=== PATIENT | male | born 1990 | race Two or more races ===

== ENCOUNTER 2020-09-10 17:51 | Emergency (ER) | payer SELFPAY ==
--- NOTE | 2020-09-10 19:12 | EDM.PDOCBH ---
ED HPI GENERAL MEDICAL PROBLEM - General Chief Complaint: Behavioral/Psych Stated Complaint: PSYCH EVALUATION Time Seen by Provider: 09/10/20 18:53 Source of Information: Reports: Patient History Limitations: Reports: No Limitations - History of Present Illness INITIAL COMMENTS - FREE TEXT/NARRATIVE: The patient presents for anxiety. He has been under lots of stress worrying a bout his dad. He had a stroke and they found he needs a Bypass. His dad is opting to use [facility]. 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 He is also a student at [employer]. He saw his therapist today and they felt he should talk to someone at [employer]. They had no one available to their policy is to sent them in for a psych eval. The patient has no suicidal or homicidal thoughts. He is not seeing or hearing things that are not there. He has not eaten today because he has been so busy. He has no history of depression. Onset: Gradual Duration: Day(s): Severity: Mild Improves with: Reports: None Worsens with: Reports: None Associated Symptoms: Reports: No Other Symptoms Headache Pain Score (Numeric/FACES): 1 - Related Data Allergies Allergy/AdvReac Type Severity Reaction Status Date / Time No Known Allergies Allergy Verified 09/10/20 18:29 Home Meds: Home Meds . [No Known Home Meds] 09/10/20 [History] Past Medical History - Past Health History Medical/Surgical History: Denies Medical/Surgical History - Infectious Disease History Infectious Disease History: Reports: Chicken Pox Social & Family History - Tobacco Use Years of Tobacco use: 0 Packs/Tins Daily: 0.1 - Caffeine Use Caffeine Use: Reports: Tea - Recreational Drug Use Recreational Drug Type: Reports: Marijuana/Hashish Other Recreational Drug Type: socially ED ROS GENERAL - Review of Systems Review Of Systems: See Below Constitutional: Reports: No Symptoms HEENT: Reports: No Symptoms Respiratory: Reports: No Symptoms Cardiovascular: Reports: No Symptoms Endocrine: Reports: No Symptoms GI/Abdominal: Reports: No Symptoms : Reports: No Symptoms Musculoskeletal: Reports: No Symptoms Skin: Reports: No Symptoms ED EXAM, BEHAVIORAL HEALTH - Physical Exam Exam: See Below Exam Limited By: No Limitations General Appearance: Alert, No Apparent Distress Ears: Normal External Exam Nose: Normal Inspection Head: Atraumatic, Normocephalic Neck: Normal Inspection Respiratory/Chest: No Respiratory Distress, Lungs Clear, Normal Breath Sounds Cardiovascular: Regular Rate, Rhythm, No Edema, No Murmur GI/Abdominal: Soft, Non-Tender, No Organomegaly, No Mass Extremities: Normal Inspection Neurological: Alert, No Motor/Sensory Deficits COURSE, BEHAVIORAL HEALTH COMP - Course Vital Signs: Last Vital Signs Temp 98.9 F 09/10/20 18:33 Pulse 64 09/10/20 18:33 Resp 20 09/10/20 18:33 BP 130/87 09/10/20 18:33 Pulse Ox 98 09/10/20 18:33 Re-Assessment/Re-Exam: The patient is not suicidal or homicidal. He has some stressors and he is seeking out therapy for them. I do not think anything else needs to be done. I will discharge him home. Departure - Departure Time of Disposition: 19:15 Disposition: Home, Self-Care 01 Condition: Good Clinical Impression: Stress - Discharge Information Referrals: PCP,None [Primary Care Provider] - Additional Instructions: Continue to see your therapist and please return if you are worse. Sepsis Event Note (ED) - Evaluation Sepsis Screening Result: No Definite Risk - Focused Exam Vital Signs: Vital Signs Temp Pulse Resp BP Pulse Ox 09/10/20 18:33 98.9 F 64 20 130/87 98
== END 2020-09-10 19:15 | disposition home or self-care (01) ==
LOC: JD.ED 17:51
DX: F43.9 Reaction to severe stress, unspecified (principal); Z72.0 Tobacco use
CPT/HCPCS: 99282; 99283